=== PATIENT | male | born 1975 | race Caucasian/White ===

== ENCOUNTER 2018-12-15 12:00 | Emergency (ER) | payer MEDICARE, MEDICAID ==
[2018-12-15 16:03] VITALS: BP 126/74
== END 2018-12-15 16:36 | disposition home or self-care (01) ==
LOC: ED 16:05
DX: R10.31 Right lower quadrant pain (principal); K59.00 Constipation, unspecified
CPT/HCPCS: 36415; 74177; 80053; 81003; 83690; 85025; 96374; 96375; 99284; J1170; J2405; Q9967

== ENCOUNTER 2019-05-12 12:13 | Emergency (ER) | payer MEDICAID, MEDICARE ==
[~2019-05-12] VITALS: Ht 180.3 cm; Wt 66.0 kg
[2019-05-12] MEDS ORDERED: SODIUM CHLORIDE FLUSH 10ML SYR IVF ONE ×2 (13:00→14:00)
[2019-05-12 13:01] LABS: MEAN CORPUSCULAR HEMOGLOBIN 30.1 pg (27.5-34.5); MEAN CORPUSCULAR HGB CONC 33.2 g/dL (33.2-36.2); MEAN CORPUSCULAR VOLUME 90.5 fL (81-97); MEAN PLATELET VOLUME 8.3 fL (7.4-10.4); PLATELET COUNT 276 x10^3/uL (130-400); RED BLOOD COUNT 5.62 x10^6/uL (4.38-5.82)
[2019-05-12 13:11] LABS: ALANINE AMINOTRANSFERASE 23 U/L (12-78); ALBUMIN 3.7 g/dL (3.4-5.0); ANION GAP 6 mmol/L (5-15); CALCIUM 9.1 mg/dL (8.5-10.1); CHLORIDE 101 mmol/L (98-107)
[2019-05-12 13:12] LABS: ALKALINE PHOSPHATASE 61 U/L (45-117); BILIRUBIN,TOTAL 2.3 mg/dL (0.2-1.0); TOTAL PROTEIN 7.9 g/dL (6.4-8.2)
[2019-05-12 13:18] LABS: MD YES
[2019-05-12 13:19] LABS: <RBC MORPHOLOGY> NORMAL; LYMPH#(MANUAL) 1.41 x10^3/uL (1-3.4); LYMPHS% (MANUAL) 7 % (22-44); MONOS#(MANUAL) 1.61 x10^3/uL (0.3-2.7); MONOS% (MANUAL) 8 % (2-9); SEG#(MANUAL) 17.09 x10^3/uL (1.8-6.8); SEGS% (MANUAL) 85 % (42-75)
[2019-05-12 13:20] LABS: <PLATELET ESTIMATE> ADEQUATE; <PLT MORPHOLOGY> NORMAL PLT MORPH
--- NOTE | 2019-05-12 13:35 | NUR ---
CARRY OUT CLERK: PT TO ROOM FROM ONE[facility] GONZALEZ
[2019-05-12] MEDS ORDERED: ONDANSETRON 2MG/ML, 2ML ONE (13:57)
[2019-05-12] MEDS ORDERED: MORPHINE SULFATE 4 MG/ML, 1ML ONE (13:57)
[2019-05-12] MEDS ORDERED: MORPHINE SULFATE 4 MG/ML, 1ML IVPush PRN (14:00)
[2019-05-12] MEDS ORDERED: ONDANSETRON 2MG/ML, 2ML IVPush ONE (14:00)
--- NOTE | 2019-05-12 14:03 | NUR ---
PT LAYING ON GURNEY AWAKE & CALM- MEDICATED PER EMAR, RESPONDS APPROP TO STAFF, COMFORT MEASURES PROVIDED, CALL LIGHT WITHIN REACH.
[2019-05-12 14:31] LABS: MICROSCOPIC INDICATED
[2019-05-12 14:45] LABS: CULTURE INDICATED? NO
--- NOTE | 2019-05-12 15:01 | NUR ---
PT LAYING ON GURNEY AWAKE & CALM, RESPONDS APPROP TO STAFF, COMFORT MEASURES PROVIDED, CALL LIGHT WITHIN REACH. PT O CT
--- NOTE | 2019-05-12 15:34 | NUR ---
PT RETURNED FROM CT
[2019-05-12] MEDS ORDERED: OMNIPAQUE 350 MG/ML, 100ML BOTTLE ONE (15:37)
[2019-05-12 16:00] VITALS: BP 124/81
--- NOTE | 2019-05-12 16:00 | NUR ---
PT REMAINS UPRIGHT ON GURNEY AWAKE & CALM, TALKING ON CELLPHONE, RESPONDS APPROP TO STAFF, COMFORT MEASURES PROVIDED, CALL LIGHT WITHIN REACH.
[2019-05-12] MEDS ORDERED: LIDOCAINE 1%-EPI 1:100K, 20ML SQ ONE (16:30)
[2019-05-12] MEDS ORDERED: LIDOCAINE 1%-EPI 1:100K, 20ML ONE (16:31)
[2019-05-12] MEDS ORDERED: HYDROmorphone 1 MG/ML, 1ML INJ ONE (16:36)
[2019-05-12] MEDS ORDERED: HYDROmorphone 1 MG/ML, 1ML INJ IV ONE (17:00)
[2019-05-12] MEDS ORDERED: CLINDAMYCIN PMX 600MG/50ML 50 ML ONE (17:08)
[2019-05-12] MEDS ORDERED: CLINDAMYCIN PMX 600MG/50ML 50 ML IV ONE (17:30)
--- NOTE | 2019-05-12 18:13 | NUR ---
Patient given discharge instructions and Rx, they have confirmed that they understand the instructions. Patient ambulatory with steady gait.
== END 2019-05-12 18:13 | disposition home or self-care (01) ==
LOC: ED 14:31
PROC: 0H99XZZ Drainage of Perineum Skin, External Approach (ICD-10-PCS; principal; 2019-05-12)
DX: L02.215 Cutaneous abscess of perineum (principal); L03.315 Cellulitis of perineum; F17.200 Nicotine dependence, unspecified, uncomplicated; R11.2 Nausea with vomiting, unspecified; R10.30 Lower abdominal pain, unspecified
CPT/HCPCS: 10060; 36415; 74177; 80053; 81001; 83605; 83690; 85025; 96365; 96375; 99284; J1170; J2270; J2405; J3490; Q9967; 56405; 96372

== ENCOUNTER 2021-01-10 19:23 | Emergency (ER) | payer MEDICARE ==
--- NOTE | 2021-01-10 19:55 | NUR ---
NIL X 1 WHEN CALLED FOR TRIAGE.
--- NOTE | 2021-01-10 20:41 | NUR ---
NIL X 2 WHEN CALLED FOR TRIAGE.
--- NOTE | 2021-01-10 21:30 | NUR ---
NIL X 3 WHEN CALLED FOR TRIAGE.
== END 2021-01-10 21:42 ==
LOC: ED 20:00
DX: R10.9 Unspecified abdominal pain (principal); Z53.21 Procedure and treatment not carried out due to patient leaving prior to being seen by health care provider

== ENCOUNTER 2021-01-11 08:52 | Emergency (ER) | payer MEDICARE ==
[~2021-01-11] VITALS: Ht 177.8 cm; Wt 63.0 kg
[2021-01-11 13:43] VITALS: BP 107/67
== END 2021-01-11 13:57 | disposition home or self-care (01) ==
LOC: ED 09:26
DX: U07.1 COVID-19 (principal); B34.9 Viral infection, unspecified; R50.9 Fever, unspecified; R00.0 Tachycardia, unspecified
CPT/HCPCS: 36415; 71045; 80053; 81001; 83605; 83690; 85025; 87040; 96360; 99284; J7030; U0003; U0005